=== PATIENT | female | born 1940 | race Asian ===

== ENCOUNTER → 2016-06-22 | Outpatient (CLI) | payer MEDICARE, OTHER ==
--- NOTE | 2016-06-22 16:00 | Diagnostic Imaging Report ---
Indication: History of right mastectomy for breast carcinoma Technique: Craniocaudal, mediolateral oblique, straight mediolateral views of the left breast Comparison: 06/18/2015, 08/26/2011 Findings: Breast demonstrate scattered fibroglandular densities. No architectural distortion. No dominant masses nor suspicious clustered micro-consultations. No skin thickening nor nipple retraction. No axillary adenopathy. No significant change. Previously reported medial asymmetry is not evident currently, however. Impression: No mammographic evidence of malignancy. Routine annual rescreening recommended BI-RADS category 2-benign Breast density BI-RADS type B.
== END | disposition home or self-care (01) ==
LOC: MAMMO 09:31
DX: Z12.39 Encounter for other screening for malignant neoplasm of breast (principal); Z85.3 Personal history of malignant neoplasm of breast; Z90.10 Acquired absence of unspecified breast and nipple